=== PATIENT | male | born 1965 | race Caucasian/White ===

== ENCOUNTER 2025-03-06 06:25 | Day surgery (SDC) | payer BC, SELFPAY ==
[2025-03-06 07:19] LABS: Glucose - Point of Care 110 mg/dl (70-99)
== END 2025-03-06 09:07 | disposition home or self-care (01) ==
LOC: GI 06:25
PROVIDERS: ATTENDING PHYSICIAN Student in an Organized Health Care Education/Training Program; FAMILY PHYSICIAN Family Medicine
DX: Z12.11 Encounter for screening for malignant neoplasm of colon (principal); D12.0 Benign neoplasm of cecum; D12.2 Benign neoplasm of ascending colon; D12.5 Benign neoplasm of sigmoid colon; K63.5 Polyp of colon; K62.1 Rectal polyp; K62.89 Other specified diseases of anus and rectum; Z86.0100 Personal history of colon polyps, unspecified
CPT/HCPCS: 45385; 45380; 82962; 88305

== ENCOUNTER 2025-07-10 06:37 | Day surgery (SDC) | payer BC, SELFPAY ==
[2025-07-10 07:33] LABS: Glucose - Point of Care 255 mg/dl (70-99)
== END 2025-07-10 10:06 | disposition home or self-care (01) ==
LOC: GI 06:37
PROVIDERS: ATTENDING PHYSICIAN Student in an Organized Health Care Education/Training Program
DX: Z12.11 Encounter for screening for malignant neoplasm of colon (principal); K63.5 Polyp of colon; K63.3 Ulcer of intestine; D12.8 Benign neoplasm of rectum; K62.1 Rectal polyp; Z86.0101 Personal history of adenomatous and serrated colon polyps
CPT/HCPCS: 45385; 45380; 82962; 88305